=== PATIENT | female | born 1975 | race African-American/Black ===

== ENCOUNTER 2017-09-06 00:26 | Emergency (ER) | payer OTHER ==
[2017-09-06 02:43] LABS: #Basophils 0.1 thou/uL (0.0-0.2); #Eosinphils 0.2 thou/uL (0.0-0.7); #Lymphocytes 1.8 thou/uL (1.20-3.40); #Monocytes 0.5 thou/uL (0.11-0.59); #Neutrophils 4.8 thou/uL (1.40-6.50); %Basophils 0.9 % (0.0-1.0); %Eosinophils 2.2 % (0.0-10.0); %Lymphocytes 24.7 % (21.0-51.0); %Monocytes 6.7 % (0.0-10.0); %Neutrophils 65.5 % (42.0-75.0); Hemoglobin 10.2 g/dL (12.0-16.0); Mean Corpuscular HGB CONC 31.7 g/dL (32.0-36.0); Mean Corpuscular Hemoglobin 24.4 pg (27.0-31.0); Mean Corpuscular Volume 76.9 fl (81.0-99.0); Mean Platelet Volume 8.1 fL (7.4-10.4); Platelet Count 313 thou/uL (130-400); RBC Distribution Width 14.6 % (11.5-14.5); Red Blood Cell (RBC) Count 4.18 mill/uL (4.20-5.40); White Blood Cell (WBC) Count 7.3 thou/uL (4.8-10.8)
[2017-09-06 03:03] LABS: ALT (SGPT) 10 U/L (8-55); AST (SGOT) 13 U/L (5-34); Albumin 4.3 g/dL (3.5-5.0); Alkaline Phosphatase 53 U/L (40-150); Anion Gap 9 mmol/L (10-20); BUN (Urea Nitrogen) 13 mg/dL (7.0-18.7); Bilirubin, Total 0.2 mg/dL (0.2-1.2); Calc. Creatinine Clearance 0 mL/min (70-130); Calcium 9.5 mg/dL (7.8-10.44); Carbon Dioxide 27 mmol/L (22-29); Chloride 107 mmol/L (98-107); Estimated GFR-MDRD 90; Glucose 105 mg/dL (70-105); Potassium 3.6 mmol/L (3.5-5.1); Protein, Total 7.3 g/dL (6.0-8.3); Sodium 139 mmol/L (136-145)
[2017-09-06 03:05] LABS: CKMB 0.5 ng/mL (0-6.6); Troponin I Less than 0.010 ng/mL (< 0.028)
[2017-09-06] MEDS ORDERED: diphenhydrAMINE 50 MG/ML VIAL ONE (03:27)
[2017-09-06] MEDS ORDERED: Metoclopramide HCl 10 MG/2 ML VIAL ONE (03:27)
[2017-09-06] MEDS ORDERED: Ketorolac Tromethamine 30 MG/ML VIAL ONE (05:48)
--- NOTE | 2017-09-06 07:50 | RAD ---
CHEST 1 VIEW: HISTORY: Dyspnea. COMPARISON: 09/30/16. FINDINGS: Cardiac silhouette is magnified and upper limits of normal in size. Pulmonary vasculature is upper l imits of normal. Mediastinum is midline. No lobar consolidation or evidence of pneumothorax. Cardi ac monitor leads overlie the chest. IMPRESSION: No active cardiopulmonary abnormalities are demonstrated. POS: [facility]
--- NOTE | 2017-10-04 14:22 | EKG ---
Test Reason : Blood Pressure : / mmHG Vent. Rate : 057 BPM Atrial Rate : 057 BPM P-R Int : 164 ms QRS Dur : 096 ms QT Int : 414 ms P-R-T Axes : 004 050 025 degrees QTc Int : 402 ms Sinus bradycardia Incomplete right bundle branch block T wave abnormality, consider anterior ischemia Abnormal ECG Confirmed by MILLICENT BLAS M.D. ([id number]), assistant film editor IVAN MOURA ([id number]) on 10/04/2017 2:21:21 PM Referred By: Confirmed By:MILLICENT BLAS M.D.
== END 2017-09-06 05:56 | disposition home or self-care (01) ==
LOC: ERS 00:26
DX: R51 Headache (principal); R05 Cough; F17.210 Nicotine dependence, cigarettes, uncomplicated; Z71.6 Tobacco abuse counseling
CPT/HCPCS: 36415; 71045; 80053; 82553; 84484; 85025; 93005; 96365; 96372; 96375; 99406; J1200; J1885; J2765

== ENCOUNTER 2019-01-24 16:19 | Emergency (ER) | payer BC ==
[2019-01-24] MEDS ORDERED: HYDROcodone/Acetaminophen 5/325 mg Tablet ONE (17:44)
== END 2019-01-24 17:52 | disposition home or self-care (01) ==
LOC: ERS 16:19
DX: K08.89 Other specified disorders of teeth and supporting structures (principal)
CPT/HCPCS: 99282

== ENCOUNTER 2024-08-16 01:42 | Emergency (ER) | payer BC | END 2024-08-16 05:30 | disposition home or self-care (01) | LOC: ERS 01:42 | DX: J11.1 Influenza due to unidentified influenza virus with other respiratory manifestations (principal) | CPT/HCPCS: 87428; 99283 ==